=== PATIENT | male | born 1935 | race Two or more races ===

== ENCOUNTER 2021-02-15 16:04 | Inpatient (IN) | payer MEDICARE, OTHER ==
[~2021-02-15] VITALS: Ht 170.2 cm; Wt 53.2 kg
--- NOTE | 2021-02-15 16:08 | NUR ---
at bedside for assessment
[2021-02-15] MEDS ORDERED: BALS60OI4 TP (16:22)
[2021-02-15] MEDS ORDERED: ACET-2154 PO (16:22)
[2021-02-15] MEDS ORDERED: IPRA3AMP23 HHN (16:22)
--- NOTE | 2021-02-15 16:25 | NUR ---
Received telephone call from Dr.Hooman Velazquez who stated he has already scheduled dialysis for the pt and to call [facility] for admission, notified.
[2021-02-15] MEDS ORDERED: VIT1TABL46 PO (16:31)
[2021-02-15] MEDS ORDERED: QUET25TA PO (16:31)
[2021-02-15] MEDS ORDERED: PANT40VI IV (16:31)
[2021-02-15] MEDS ORDERED: SIME80TA16 PO (16:31)
[2021-02-15] MEDS ORDERED: MIDO10TA PO (16:31)
[2021-02-15] MEDS ORDERED: METO25TA6 PO (16:31)
[2021-02-15] MEDS ORDERED: POLY17PO4 PO (16:31)
[2021-02-15] MEDS ORDERED: MODA100T29 PO (16:31)
[2021-02-15] MEDS ORDERED: SENN-261 PO (16:31)
[2021-02-15] MEDS ORDERED: ONDA4TAB11 SL (16:31)
[2021-02-15] MEDS ORDERED: HYDR-4209 PO (16:31)
[2021-02-15] MEDS ORDERED: EPOE1000 SQ (16:31)
[2021-02-15] MEDS ORDERED: SILV50CR32 TP (16:31)
[2021-02-15] MEDS ORDERED: COLL30OI TOP (16:31)
[2021-02-15 16:45] LABS: HEMATOCRIT 29.3 % (36.7-47.1); MEAN CORPUSCULAR HEMOGLOBIN 32.7 uug (23.8-33.4); MEAN CORPUSCULAR VOLUME 104.9 fL (73.0-96.2); PLATELET COUNT (AUTO) 104 K/uL (152-348)
[2021-02-15 16:54] LABS: CARBON DIOXIDE 30 mmol/L (21-32); CHLORIDE 102 mmol/L (98-107); CREATININE 4.9 mg/dL (0.6-1.3); GLUCOSE 96 mg/dL (74-106); POTASSIUM 4.5 mmol/L (3.5-5.1); UREA NITROGEN, BLOOD 39 mg/dL (7-18)
[2021-02-15 16:55] LABS: ETHANOL < 3 MG/DL (0-0)
[2021-02-15 17:01] LABS: *BLOOD, URINE 2+ (NEGATIVE); *CLARITY,URINE SLIGHTLY CLOUDY (CLEAR); *COLOR,URINE AMBER (YELLOW); *KETONES,URINE 1+ (NEGATIVE); LEUKOCYTE ESTERASE ,URINE NEGATIVE (NEGATIVE); NITRITE, URINE NEGATIVE (NEGATIVE); UGLUCOSE TRACE (NEGATIVE)
[2021-02-15 17:02] LABS: *BILIRUBIN,URIN 3+ (NEGATIVE)
[2021-02-15 17:07] LABS: RBC,URINE 20-50 /HPF (0-3)
[2021-02-15 17:08] LABS: THYROID STIMULATING HORMONE 12.935 mIU/mL (0.358-3.740)
[2021-02-15 17:08] LABS: BACTERIA,URINE FEW /HPF (NONE SEEN); SQUAMOUS EPITHELIAL CELL,UR FEW /HPF (NONE SEEN); URINE AMORPHOUS URATE MODERATE /HPF
[2021-02-15 17:11] LABS: ACETAMINOPHEN < 2.0 ug/mL (10-30); ALANINE AMINOTRANSFERASE 23 U/L (16-63); ALKALINE PHOSPHATASE 314 U/L (50-136); ASPARTATE AMINOTRANSFERASE 58 U/L (15-37); BILIRUBIN,DIRECT 6.4 mg/dL (0.0-0.2); BILIRUBIN,TOTAL 7.9 mg/dL (0.2-1.0); TOTAL PROTEIN, SERUM 6.6 g/dL (6.4-8.2)
[2021-02-15 17:12] LABS: *AMPHETAMINE, URINE NEGATIVE (NEGATIVE); *CANNABINOID, URINE NEGATIVE (NEGATIVE); *COCCAINE, URINE NEGATIVE (NEGATIVE); *OPIATE, URINE NEGATIVE (NEGATIVE); *PHENCYCLIDINE SCREEN,URINE NEGATIVE (NEGATIVE)
[2021-02-15 17:20] LABS: LYMPHOCYTES % (MANUAL) 22 % (20-40); NEUTROPHILS % (MANUAL) 56 % (42-75)
[2021-02-15 17:21] LABS: EOSINOPHILS % (MANUAL) 7 % (0-8); MONOCYTES % (MANUAL) 15 % (2-10)
[2021-02-15] MEDS ORDERED: MAGNESIUM HYDROXIDE 30 ML LIQUID UDC PO PRN (19:00)
[2021-02-15] MEDS ORDERED: SIMETHICONE 80 MG TAB.CHEW PO SCH (19:15)
--- NOTE | 2021-02-15 20:00 | NUR ---
Pt trans to tele room 302, NAD noted.
[2021-02-15 20:23] VITALS: BP 107/59
[2021-02-16 00:06] VITALS: BP 97/55
[2021-02-16] MEDS: HYDROCODONE/APAP 5-325MG TABLET PO PRN ×3 (00:56→14:26)
[2021-02-16 04:00] VITALS: BP 102/63
--- NOTE | 2021-02-16 05:51 | NUR ---
Pt admitted to Tele from ER at 2000H. All belongings accounted for. A-Fib on monitor with PVCs. Denies pain or SOB. On 4L NC. 2+ pitting edema in all extremities. Right upper arm PICC line dressing changed. Pt confused but able to follow directions. Bed is locked and in lowest position. Call light within reach. Repositioned for comfort. No other issues or concerns at this time, will endorse to day shift.
[2021-02-16] MEDS ORDERED: SIMETHICONE 80 MG TAB.CHEW PO PRN (05:55)
[2021-02-16 06:41] LABS: HEMATOCRIT 28.7 % (36.7-47.1); MEAN CORPUSCULAR HEMOGLOBIN 32.5 uug (23.8-33.4); MEAN CORPUSCULAR VOLUME 105.1 fL (73.0-96.2); PLATELET COUNT (AUTO) 101 K/uL (152-348)
[2021-02-16 07:00] LABS: ALANINE AMINOTRANSFERASE 22 U/L (16-63); ALKALINE PHOSPHATASE 289 U/L (50-136); ASPARTATE AMINOTRANSFERASE 59 U/L (15-37); BILIRUBIN,TOTAL 7.3 mg/dL (0.2-1.0); CARBON DIOXIDE 27 mmol/L (21-32); CHLORIDE 103 mmol/L (98-107); CHOLESTEROL < 50 mg/dL (<200); GLUCOSE 94 mg/dL (74-106); MAGNESIUM 2.6 mg/dL (1.8-2.4); PHOSPHOROUS 6.1 mg/dL (2.5-4.9); POTASSIUM 4.5 mmol/L (3.5-5.1); TOTAL PROTEIN, SERUM 6.3 g/dL (6.4-8.2); TRIGLYCERIDES 93 MG/DL (30-150); UREA NITROGEN, BLOOD 40 mg/dL (7-18)
[2021-02-16 07:13] LABS: HDL CHOLESTEROL < 10 mg/dL (40-60)
[2021-02-16] MEDS ORDERED: MODAFINIL 100 MG TABLET PO SCH (09:00)
[2021-02-16] MEDS ORDERED: QUETIAPINE FUMARATE 25 MG TABLET PO SCH (09:00)
[2021-02-16] MEDS ORDERED: METOPROLOL TARTRATE 25 MG TABLET PO SCH (09:00)
[2021-02-16] MEDS ORDERED: METOPROLOL TARTRATE 25 MG TABLET PO ONE (09:00)
[2021-02-16] MEDS: SENNOSIDES 1 TABLET PO SCH (09:52)
[2021-02-16 11:44] VITALS: BP 124/55
[2021-02-16] MEDS: METOPROLOL TARTRATE 25 MG TABLET PO SCH ×2 (14:26→17:23)
--- NOTE | 2021-02-16 15:00 | NUR ---
MED. PO X2 FOR C/O SEVERE PAIN LOW BACK & HIPS WITH GOOD EFFECT AFTER 1 HOUR.
[2021-02-16 15:16] VITALS: BP 108/69
[2021-02-16] MEDS: QUETIAPINE FUMARATE 25 MG TABLET PO SCH (17:23)
--- NOTE | 2021-02-16 18:00 | NUR ---
AT BEDSIDE. NO FURTHER C/O DISCOMFORT. STATES FEELING BETTER.
[2021-02-16 20:00] VITALS: BP 124/52
[2021-02-17] VITALS: BP 98/53
[2021-02-17 04:00] VITALS: BP 100/61
--- NOTE | 2021-02-17 05:29 | NUR ---
Pt slept intermittently throughout the night. Denies pain. Titrated to 1L NC, tolerating well. Wound care done on full thickness wound on right buttocks, tolerated well. No distress noted. Safety and comfort provided, no other issues or concerns at this time. Will endorse to day shift.
[2021-02-17] MEDS: LEVOTHYROXINE SODIUM 50 MCG TABLET PO SCH (06:00)
--- NOTE | 2021-02-17 07:30 | NUR ---
Patient in bed hob elevated, awake and responsive. Currently on dialysis. Picc line intact and patent. Safety measures maintained. Kept comfortable. Continue to monitor.
--- NOTE | 2021-02-17 08:47 | NUR ---
Per HD RN no output due to low BP. BP rechecked and noted 128/57
[2021-02-17 09:10] VITALS: BP 118/65
[2021-02-17] MEDS: MODAFINIL 100 MG TABLET PO SCH (09:27)
[2021-02-17] MEDS: QUETIAPINE FUMARATE 25 MG TABLET PO SCH ×2 (09:27→17:02)
[2021-02-17] MEDS: METOPROLOL TARTRATE 25 MG TABLET PO SCH ×3 (09:29→17:00)
[2021-02-17] MEDS: SENNOSIDES 1 TABLET PO SCH (09:39)
[2021-02-17 11:31] VITALS: BP 115/61
--- NOTE | 2021-02-17 11:39 | NUR ---
WOUND CARE CONSULT: PT PRESENTS WITH RT BUTTOCK PURULENT UNSTAGEABLE ULCER, PRESENT ON ADMISSION. RECOMMENDATIONS MADE FOR SKIN PROTECTION AND WOUND CARE. DISCUSSED WITH NURSING STAFF. SURGICAL CONSULT CALLED TO DR NOAH LICEA MD IN AGREEMENT WITH PLAN OF CARE. Addendum: 02/17/21 at 1140 by ANDRZEJ DESAI RN Amended: Links added. Addendum: 02/17/21 at 1143 by ANDRZEJ DESAI RN FIRST STEP LOW AIRLOSS MATTRESS IS ON ORDER.
[2021-02-17] MEDS: MIDODRINE HCL 5 MG TABLET PO SCH ×2 (12:15→17:02)
[2021-02-17] MEDS: SODIUM HYPOCHLORITE 0.125% (QUARTER STRENGTH) 473 ML BOTTLE TP SCH (13:07)
[2021-02-17 16:00] VITALS: BP 107/61
--- NOTE | 2021-02-17 17:15 | NUR ---
Dr. Alvarez made aware of patient's bp and hr with order to hold metoprolol, give midodrine, noted and carried out.
--- NOTE | 2021-02-17 18:48 | NUR ---
Patient resting but easily arousable. Alert and responsive. On 1 Lpm via nc tolerated spo2 97%. In no acute distress. KAYODE picc line intact and patent. Denies pain. Angel catheter intact and patent, draining dark yellow urine. No hematuria noted. Due meds tolerated. No nausea or vomiting. Safety maintained. Needs attended. at bedside.
[2021-02-17 20:00] VITALS: BP 124/56
[2021-02-18] VITALS: BP 118/65
[2021-02-18 04:00] VITALS: BP 123/66
[2021-02-18] MEDS: LEVOTHYROXINE SODIUM 50 MCG TABLET PO SCH (07:25)
--- NOTE | 2021-02-18 07:26 | NUR ---
Received awake and responsive to name calling out family names. On 1 Lpm via nc tolerated no acute distress. Hob elevated extremities elevated due to edema. HD site with dry dressing intact. KAYODE picc line intact. Angel catheter patent draining dark yellow urine. No hematuria. Bed is low and locked. Safety maintained. Kept comfortable. COntinue to monitor.
[2021-02-18 07:30] VITALS: BP 121/60
[2021-02-18] MEDS: METOPROLOL TARTRATE 25 MG TABLET PO SCH ×3 (08:17→17:03)
[2021-02-18] MEDS: SENNOSIDES 1 TABLET PO SCH (08:17)
[2021-02-18] MEDS: MODAFINIL 100 MG TABLET PO SCH (08:18)
[2021-02-18] MEDS: MIDODRINE HCL 5 MG TABLET PO SCH ×3 (08:18→17:00)
[2021-02-18] MEDS: QUETIAPINE FUMARATE 25 MG TABLET PO SCH ×2 (08:18→17:03)
[2021-02-18] MEDS: SODIUM HYPOCHLORITE 0.125% (QUARTER STRENGTH) 473 ML BOTTLE TP SCH (10:08)
[2021-02-18 12:00] VITALS: BP 94/67
--- NOTE | 2021-02-18 12:30 | NUR ---
Dr. Morales made aware bp 94/67 p113.
[2021-02-18 15:06] LABS: *PEU PROTEIN, TOTAL, UR 156.6 mg/dL (Not Estab.)
[2021-02-18 15:42] LABS: HEPATITIS B SURFACE AB Non Reactive; HEPATITIS B SURFACE AG Negative
[2021-02-18 16:00] VITALS: BP 123/72
[2021-02-18] MEDS ORDERED: VANCOMYCIN IV 1,000 MG in IV DEXTROSE 5% 250 ML IV ONE (18:30)
--- NOTE | 2021-02-18 19:22 | NUR ---
Alert and oriented to name. In no acute distress. On 1 Lpm via nc tolerated. Denies pain. On air loss mattress for wound management. Iv on malik picc line intact. No adverse reaction from atb. Angel catheter intact and draining yellow urine. No hematuria noted. Safety maintained. Endorsed for continuity of care.
[2021-02-18 20:00] VITALS: BP 105/63
[2021-02-19] VITALS: BP 113/51
[2021-02-19 04:00] VITALS: BP 120/60
--- NOTE | 2021-02-19 05:30 | NUR ---
Pt slept intermittently throughout the night. No distress noted. Denies pain at this time. KAYODE PICC line patent and intact. Wound cleansed with Dakins and new dressing applied, pictures taken and placed in chart. Scheduled for dialysis today. Safety and comfort provided. No other issues or concerns at this time, will endorse to day shift.
[2021-02-19] MEDS: LEVOTHYROXINE SODIUM 50 MCG TABLET PO SCH (06:07)
[2021-02-19 06:46] LABS: HEMATOCRIT 29.8 % (36.7-47.1); MEAN CORPUSCULAR HEMOGLOBIN 32.7 uug (23.8-33.4); MEAN CORPUSCULAR VOLUME 105.5 fL (73.0-96.2); PLATELET COUNT (AUTO) 91 K/uL (152-348)
[2021-02-19 07:05] LABS: IRON, SERUM 43 ug/dL (50-175)
[2021-02-19 07:06] LABS: ALANINE AMINOTRANSFERASE 27 U/L (16-63); ALKALINE PHOSPHATASE 326 U/L (50-136); ASPARTATE AMINOTRANSFERASE 60 U/L (15-37); BILIRUBIN,TOTAL 6.8 mg/dL (0.2-1.0); CARBON DIOXIDE 31 mmol/L (21-32); CHLORIDE 103 mmol/L (98-107); CREATININE 3.7 mg/dL (0.6-1.3); GLUCOSE 100 mg/dL (74-106); MAGNESIUM 2.3 mg/dL (1.8-2.4); PHOSPHOROUS 4.6 mg/dL (2.5-4.9); POTASSIUM 4.5 mmol/L (3.5-5.1); TOTAL PROTEIN, SERUM 6.9 g/dL (6.4-8.2); UREA NITROGEN, BLOOD 28 mg/dL (7-18); VANCOMYCIN,RANDOM 16.1 ug/mL (18.0-26.0)
[2021-02-19 07:30] VITALS: BP 122/59
--- NOTE | 2021-02-19 07:47 | NUR ---
RECEIVED AWAKE, TALKING TO HIMSELF. REORIENTED BUT ONLY ORIENTED TO NAME. ON 1 LPM VIA NC. TOLERATED. IN NO ACUTE DISTRESS. NO FACIAL GRIMACING NOTED. PICC LINE INTACT. VAUGHN CATHETER INTACT DRAINING DARK YELLOW URINE. HOB ELEVATED. EXTREMITIES ELEVATED. KEPT COMFORTABLE. CALL LIGHT IN REACH. CONTINUE TO MONITOR.
[2021-02-19] MEDS: MODAFINIL 100 MG TABLET PO SCH (08:31)
[2021-02-19] MEDS: METOPROLOL TARTRATE 25 MG TABLET PO SCH ×4 (08:31→17:00)
[2021-02-19] MEDS: NEPRO (VANILLA) 237 ML CAN PO SCH (08:32)
[2021-02-19] MEDS: MIDODRINE HCL 5 MG TABLET PO SCH ×4 (08:32→17:00)
[2021-02-19] MEDS: QUETIAPINE FUMARATE 25 MG TABLET PO SCH ×2 (08:32→17:00)
[2021-02-19] MEDS: SENNOSIDES 1 TABLET PO SCH (08:33)
[2021-02-19] MEDS: SODIUM HYPOCHLORITE 0.125% (QUARTER STRENGTH) 473 ML BOTTLE TP SCH (08:33)
[2021-02-19 08:51] LABS: THYROID STIMULATING HORMONE 14.198 mIU/mL (0.358-3.740)
[2021-02-19] MEDS ORDERED: LIDOCAINE 1%-EPI 1:100,000 20 ML VIAL IJ ONE (10:15)
[2021-02-19] MEDS ORDERED: SILVER NITRATE APPLICATOR STICK EACH TP ONE (10:15)
[2021-02-19 11:36] VITALS: BP 114/71
[2021-02-19 12:40] LABS: EOSINOPHILS % (MANUAL) 5 % (0-8); LYMPHOCYTES % (MANUAL) 20 % (20-40); MONOCYTES % (MANUAL) 20 % (2-10); NEUTROPHILS % (MANUAL) 55 % (42-75)
--- NOTE | 2021-02-19 13:44 | NUR ---
Patient having dialysis today. Per Dr. Morales hold bp meds. Family at bedside aware.
[2021-02-19 16:00] VITALS: BP 117/84
--- NOTE | 2021-02-19 16:05 | NUR ---
Left voicemail for Ashvin RN asking what time he's coming for patient's dialysis. Waiting for call back.
--- NOTE | 2021-02-19 18:16 | NUR ---
Left vm for Blanca again re time he's coming for dialysis. Waiting for call back.
--- NOTE | 2021-02-19 18:44 | NUR ---
Wound dressing changed as ordered. spear fisher here.
--- NOTE | 2021-02-19 18:48 | NUR ---
Patient in bed resting comfortably. On 1 Lpm via nc tolerated. No sob noted. Denies pain. at bedside. No complaints at this time. Due meds given and tolerated. Angel catheter draining dark yellow urine. No hematuria. KAYODE picc line intact and patent. bottom filler here. Per Gal at pharmacy, give Vancomycin after dialysis. Patient is kept comfortable. Safety maintained. Will endorse accordingly.
[2021-02-19 20:00] VITALS: BP 128/67
[2021-02-19] MEDS: VANCOMYCIN IV 500 MG in IV DEXTROSE 5% 100 ML IV PRN (20:42)
[2021-02-20] VITALS: BP 123/64
[2021-02-20] MEDS: ACETAMINOPHEN 325 MG TABLET PO PRN (02:41)
[2021-02-20 04:00] VITALS: BP 120/62
--- NOTE | 2021-02-20 05:28 | NUR ---
Pt slept intermittently throughout the night. No distress or SOB noted. Patient denies pain at this time. On 1L NC, tolerating well. Dialyzed yesterday, removed 1.6L. KAYODE PICC line dressing changed. Wound care done on buttocks, pt tolerated well. ST on monitor, up to 115, pt asymptomatic. Safety and comfort provided to patient throughout shift. No other issues or concerns at this time, will endorse to day shift.
[2021-02-20] MEDS: LEVOTHYROXINE SODIUM 75 MCG TABLET PO SCH (06:20)
--- NOTE | 2021-02-20 07:02 | NUR ---
During wound dressing change, patient had one episode of V-Tach for about 2 seconds. Pt asymptomatic. Denies chest pain. Dr. Morales notified with no new orders at this time.
[2021-02-20 07:05] LABS: CARBON DIOXIDE 31 mmol/L (21-32); CHLORIDE 104 mmol/L (98-107); GLUCOSE 83 mg/dL (74-106); POTASSIUM 4.1 mmol/L (3.5-5.1); UREA NITROGEN, BLOOD 25 mg/dL (7-18); VANCOMYCIN,RANDOM 20.6 ug/mL (18.0-26.0)
--- NOTE | 2021-02-20 07:30 | NUR ---
PATIENT RECEIVED ON AIR MATTRESS WITH EYES OPEN. 1L O2 VIA NC WITH NO SOB OR DIFFICULTIES BREATHING NOTED AT THIS TIME. PATIENT DENIES ANY PAIN OR DISCOMFORTS AT THIS TIME. PATIENT IS ONLY ORIENTED TO SELF AND HAS MOMENTS OF CONFUSION, BUT REDIRECTABLE AT THIS TIME. PT SHOWING A FIB WITH PVCS ON TELE WITH HR OF 111 AT THIS TIME. [address] IN PLACE DRAINING VIA GRAVITY WITH JOHNIE URINE. PERSONAL BELONGINGS AND CALL LIGHT WITHIN EASY REACH. WILL CONTINUE TO MONITOR.
[2021-02-20] MEDS: SODIUM HYPOCHLORITE 0.125% (QUARTER STRENGTH) 473 ML BOTTLE TP SCH (08:56)
[2021-02-20] MEDS: SENNOSIDES 1 TABLET PO SCH (08:58)
[2021-02-20] MEDS: QUETIAPINE FUMARATE 25 MG TABLET PO SCH ×2 (08:58→17:51)
[2021-02-20] MEDS: MODAFINIL 100 MG TABLET PO SCH (08:59)
[2021-02-20] MEDS: NEPRO (VANILLA) 237 ML CAN PO SCH (09:00)
[2021-02-20] MEDS: MIDODRINE HCL 5 MG TABLET PO SCH ×3 (09:06→17:51)
[2021-02-20] MEDS: METOPROLOL TARTRATE 25 MG TABLET PO SCH ×3 (09:06→17:00)
--- NOTE | 2021-02-20 11:15 | NUR ---
PATIENT UNABLE TO SIGN CONSENT FOR WOUND DEBRIDEMENT BECAUSE CONFUSED AND UNABLE TO FOLLOW DIRECTIONS. ATTEMPTED TO CONTACT DAUGHTER JOHN, BUT NUMBER ON FILE IS NOT A WORKING NUMBER. ATTEMPTED TO CALL [employer], BUT NO ANSWER. WILL TRY AGAIN IN 30 MINUTES.
[2021-02-20 12:00] VITALS: BP 103/64
--- NOTE | 2021-02-20 12:00 | NUR ---
PATIENT AT BEDSIDE. CONSENT FOR WOUND DEBRIDEMENT RECEIVED. PATIENT IS IN BED WITH EYES CLOSED, EASILY AROUSABLE. CALL LIGHT AND PERSONAL BELONGINGS WITHIN EASY REACH. WILL CONTINUE TO MONITOR.
[2021-02-20] MEDS ORDERED: ALBUMIN HUMAN 25% 100 ML IV ONE (15:45)
[2021-02-20 16:17] VITALS: BP 114/59
--- NOTE | 2021-02-20 17:50 | NUR ---
PATIENT FINISHED WITH DIALYSIS AND CURRENT B/P IS 105/56. PATIENT WAS GIVEN ALBUMIN DURING DIALYSIS FOR B/P, SO 1700 DOSE OF METOPROLOL WAS HELD.
[2021-02-20] MEDS: VANCOMYCIN IV 500 MG in IV DEXTROSE 5% 100 ML IV PRN (18:24)
--- NOTE | 2021-02-20 18:50 | NUR ---
PATIENT PICC LINE DRESSING WAS CHANGED BECAUSE BIOPATCH WAS SOILED.
[2021-02-20] MEDS: LACTULOSE 20 G/30 ML LIQUID UDC PO SCH ×2 (19:00→21:17)
--- NOTE | 2021-02-20 19:00 | NUR ---
Received patient in bed, A/O x1. Patient currently stable, A-fib on the monitor. Patient had HD today with 1L output. Right chest Tiago catheter in place, KAYODE picc line in place, both dressings clean. Patient on first step mattress, no Angel. Concern for full thickness on right buttock. Wound debridement scheduled for tomorrow.
[2021-02-20 20:00] VITALS: BP 110/54
[2021-02-20] MEDS: RIFAXIMIN 550 MG TABLET PO SCH (21:17)
[2021-02-21] VITALS: BP 114/55
[2021-02-21] MEDS: HYDROCODONE/APAP 5-325MG TABLET PO PRN ×2 (01:32→14:25)
[2021-02-21 04:00] VITALS: BP 119/62
--- NOTE | 2021-02-21 04:37 | NUR ---
Wound debridement kit prepared and is at the bedside.
[2021-02-21] MEDS: LEVOTHYROXINE SODIUM 75 MCG TABLET PO SCH (06:27)
--- NOTE | 2021-02-21 07:04 | NUR ---
Patient remains A/O x1. Patient currently stable, remains A-fib on the monitor. Patient given bed bath, wound on right buttock cleaned and re-dressed. All supplies for wound debridement in the room.
[2021-02-21 07:27] LABS: CARBON DIOXIDE 32 mmol/L (21-32); CHLORIDE 104 mmol/L (98-107); CREATININE 3.1 mg/dL (0.6-1.3); GLUCOSE 80 mg/dL (74-106); UREA NITROGEN, BLOOD 27 mg/dL (7-18); VANCOMYCIN,RANDOM 18.3 ug/mL (18.0-26.0)
--- NOTE | 2021-02-21 07:30 | NUR ---
Patient received on air mattress with eyes closed, easily arousable. 1L O2 via NC with no SOB or difficulties breathing at this time. Patient is alert and oriented x1, a-fib on monitor. Right chest gopi catheter is in place, KAYODE picc line in place, both dressings clean and dry. Plan for wound debridement today at bedside. No distress noted at this time. Personal belongings and call light within easy reach. Will continue to monitor.
[2021-02-21] MEDS: QUETIAPINE FUMARATE 25 MG TABLET PO SCH ×2 (09:50→17:43)
[2021-02-21] MEDS: METOPROLOL TARTRATE 25 MG TABLET PO SCH ×3 (09:50→17:00)
[2021-02-21] MEDS: NEPRO (VANILLA) 237 ML CAN PO SCH ×3 (09:50→17:44)
[2021-02-21] MEDS: MODAFINIL 100 MG TABLET PO SCH (09:50)
[2021-02-21] MEDS: MIDODRINE HCL 5 MG TABLET PO SCH ×3 (09:50→17:43)
[2021-02-21] MEDS: SENNOSIDES 1 TABLET PO SCH (09:50)
[2021-02-21] MEDS: RIFAXIMIN 550 MG TABLET PO SCH ×2 (09:51→21:38)
[2021-02-21] MEDS: LACTULOSE 20 G/30 ML LIQUID UDC PO SCH ×2 (09:51→21:38)
[2021-02-21] MEDS: SODIUM HYPOCHLORITE 0.125% (QUARTER STRENGTH) 473 ML BOTTLE TP SCH (09:52)
[2021-02-21 11:49] VITALS: BP 131/71
[2021-02-21] MEDS ORDERED: SILVER NITRATE APPLICATOR STICK EACH TP ONE (13:42)
[2021-02-21] MEDS ORDERED: LIDOCAINE 1%-EPI 1:100,000 20 ML VIAL IJ ONE (13:43)
[2021-02-21] MEDS: CEFTRIAXONE 1 G in IV DEXTROSE 5% 50 ML IV SCH (14:26)
[2021-02-21 15:59] VITALS: BP 101/52
[2021-02-21 20:00] VITALS: BP 109/49
[2021-02-22 04:00] VITALS: BP 95/59
--- NOTE | 2021-02-22 04:49 | NUR ---
Patient in bed alert x1 slovak speaking ,responsive to verbal and tactile stimuli.No s/s of distress noted. No facial grimaces discomfort.On O2 at 1LPM via NC ,saturating well.Right upper chest with gopi catheter and picc line on right upper arm patent and intact .Wound care done on right buttock.Tolerated well.Repositioned patient .Call light with in reach.
[2021-02-22] MEDS: LEVOTHYROXINE SODIUM 75 MCG TABLET PO SCH (06:23)
--- NOTE | 2021-02-22 07:15 | NUR ---
Patient received on air mattress with eyes closed, easily arousable. Dialysis nurse at bedside and patient currently being hemodialyzed. 1L O2 via NC with no SOB or difficulties breathing at this time. KAYODE picc line in place with clean and dry dressing. No distress noted at this time. Personal belongings and call light within easy reach. Will continue to monitor.
[2021-02-22] MEDS ORDERED: ALBUMIN HUMAN 25% 100 ML IV ONE (07:45)
[2021-02-22] MEDS: METOPROLOL TARTRATE 25 MG TABLET PO SCH ×3 (09:00→21:13)
[2021-02-22] MEDS: LACTULOSE 20 G/30 ML LIQUID UDC PO SCH ×2 (10:17→20:56)
[2021-02-22] MEDS: RIFAXIMIN 550 MG TABLET PO SCH ×2 (10:17→20:56)
[2021-02-22] MEDS: QUETIAPINE FUMARATE 25 MG TABLET PO SCH ×2 (10:18→17:35)
[2021-02-22] MEDS: MIDODRINE HCL 5 MG TABLET PO SCH ×3 (10:18→17:39)
[2021-02-22] MEDS: MODAFINIL 100 MG TABLET PO SCH (10:18)
[2021-02-22] MEDS: SENNOSIDES 1 TABLET PO SCH (10:18)
--- NOTE | 2021-02-22 10:19 | NUR ---
PATIENT JUST FINISHED HD WITH 1L OUTPUT, B/P OF 103/51. HELD METOPROLOL. WILL CONTINUE TO MONITOR.
[2021-02-22] MEDS: SODIUM HYPOCHLORITE 0.125% (QUARTER STRENGTH) 473 ML BOTTLE TP SCH (10:20)
[2021-02-22] MEDS: NEPRO (VANILLA) 237 ML CAN PO SCH ×2 (10:20→17:39)
[2021-02-22 11:00] VITALS: BP 121/64
[2021-02-22] MEDS: CEFTRIAXONE 1 G in IV DEXTROSE 5% 50 ML IV SCH (13:08)
[2021-02-22 16:00] VITALS: BP 109/61
[2021-02-22 20:00] VITALS: BP 100/57
--- NOTE | 2021-02-22 20:10 | NUR ---
Patient in bed awake georgian speaking. HOB elevated.No s/s of distress noted.Compliant with medication and care.Picc line dressing intact clean and dry.Madi lower ext.edema elevated with pillow.Family member at bedside. seen and examined patient no new order at this time.
[2021-02-23] MEDS: METOPROLOL TARTRATE 25 MG TABLET PO SCH ×3 (05:13→22:00)
[2021-02-23] MEDS: LEVOTHYROXINE SODIUM 75 MCG TABLET PO SCH (06:04)
[2021-02-23 07:04] LABS: HEMATOCRIT 28.3 % (36.7-47.1); MEAN CORPUSCULAR HEMOGLOBIN 32.6 uug (23.8-33.4); MEAN CORPUSCULAR VOLUME 103.3 fL (73.0-96.2); PLATELET COUNT (AUTO) 83 K/uL (152-348)
[2021-02-23 07:19] LABS: ALANINE AMINOTRANSFERASE 27 U/L (16-63); ALKALINE PHOSPHATASE 314 U/L (50-136); ASPARTATE AMINOTRANSFERASE 60 U/L (15-37); CARBON DIOXIDE 30 mmol/L (21-32); CHLORIDE 106 mmol/L (98-107); CREATININE 2.9 mg/dL (0.6-1.3); GLUCOSE 119 mg/dL (74-106); MAGNESIUM 2.2 mg/dL (1.8-2.4); PHOSPHOROUS 3.5 mg/dL (2.5-4.9); POTASSIUM 4.2 mmol/L (3.5-5.1)
[2021-02-23 07:30] VITALS: BP 97/50
[2021-02-23 07:35] LABS: UREA NITROGEN, BLOOD 20 mg/dL (7-18)
[2021-02-23] MEDS: QUETIAPINE FUMARATE 25 MG TABLET PO SCH ×2 (08:09→17:29)
[2021-02-23] MEDS: RIFAXIMIN 550 MG TABLET PO SCH ×2 (08:09→21:19)
[2021-02-23] MEDS: MODAFINIL 100 MG TABLET PO SCH (08:09)
[2021-02-23] MEDS: SENNOSIDES 1 TABLET PO SCH (08:09)
[2021-02-23] MEDS: LACTULOSE 20 G/30 ML LIQUID UDC PO SCH ×2 (08:09→21:19)
[2021-02-23] MEDS: NEPRO (VANILLA) 237 ML CAN PO SCH ×2 (08:10→17:29)
[2021-02-23] MEDS: SODIUM HYPOCHLORITE 0.125% (QUARTER STRENGTH) 473 ML BOTTLE TP SCH (08:11)
[2021-02-23] MEDS: MIDODRINE HCL 5 MG TABLET PO SCH ×3 (08:15→17:28)
[2021-02-23 11:09] LABS: EOSINOPHILS % (MANUAL) 2 % (0-8); LYMPHOCYTES % (MANUAL) 13 % (20-40); METAMYELOCYTES % 1 % (0-1); MONOCYTES % (MANUAL) 19 % (2-10); MYELOCYTES % 1 % (0-0); NEUTROPHILS % (MANUAL) 61 % (42-75)
[2021-02-23 11:30] VITALS: BP 111/61
[2021-02-23] MEDS: CEFTRIAXONE 1 G in IV DEXTROSE 5% 50 ML IV SCH (13:58)
[2021-02-23] MEDS ORDERED: MIDO5TAB4 PO (14:10)
[2021-02-23] MEDS ORDERED: HYDR-4209 PO (14:10)
[2021-02-23] MEDS ORDERED: ACID1TAB4 PO (14:10)
[2021-02-23] MEDS ORDERED: CEFT1VIA15 IV (14:10)
[2021-02-23] MEDS ORDERED: LEVO50TA8 PO (14:10)
[2021-02-23] MEDS ORDERED: ACET325T53 PO (14:10)
[2021-02-23] MEDS ORDERED: SODI473S8 TP (14:10)
[2021-02-23] MEDS ORDERED: METO25TA6 PO (14:10)
[2021-02-23] MEDS ORDERED: QUET25TA PO (14:10)
[2021-02-23] MEDS ORDERED: LACT10SO3 PO (14:12)
[2021-02-23] MEDS ORDERED: CHOL400T32 PO (14:25)
[2021-02-23 16:00] VITALS: BP 124/71
[2021-02-23 16:16] VITALS: BP 118/56
[2021-02-23] MEDS ORDERED: METOLAZONE 2.5 MG TABLET PO ONE ×2 (17:00→17:30)
--- NOTE | 2021-02-23 19:00 | NUR ---
Patient report received from previous shift. Patient awake, alert and oriented x 1 to person. No signs of pain at this time. Patient comfortable on 1L of oxygen. Patient is bedbound. 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 Patient is incontinent for bowel and urine. KAYODE midline, patent. Patient will be receiving dialysis. Safety precautions in place. Will continue to monitor.
[2021-02-23 20:19] VITALS: BP 96/45
--- NOTE | 2021-02-23 23:50 | NUR ---
Patient received dialysis. Out put of 1500ml.
[2021-02-24 05:10] VITALS: BP 112/44
[2021-02-24] MEDS: LEVOTHYROXINE SODIUM 75 MCG TABLET PO SCH (06:30)
[2021-02-24] MEDS: METOPROLOL TARTRATE 25 MG TABLET PO SCH ×3 (06:56→22:29)
--- NOTE | 2021-02-24 07:20 | NUR ---
Patient resting in bed. Awake alert and oriented x 1. Resting comfortably on 1L of oxygen. No signs of pain or distress at this time. No shortness of breath noted. Fall and safety precautions in place.
--- NOTE | 2021-02-24 07:30 | NUR ---
RECEIVED PATIENT ON FIRST STEP SHAUN AWAKE ALERT TO SELF WITH CONFUSSION AND DISORIENTATION ALL NEEDS ANTICIPATED AND SATISFIED WITH MAX ASSIST FOR ALL ADL REPOSITIONED FOR COMFORT WITH TX IN PROGRESS TO LEFT BUTTOCKS DECUB ORDERED.ON O2 AT ONE LITER WITH NO SHORTNESS OF BREATH AT THIS TIME PERMA CATH ON RIGHT UPPER CHEST INTACT WITH NO DRAINAGE AT THIS TIME.MADE COMFORTABLE WILL CONTINUE TO OBSERVE.
[2021-02-24] MEDS: LACTULOSE 20 G/30 ML LIQUID UDC PO SCH ×2 (09:01→20:54)
[2021-02-24] MEDS: SENNOSIDES 1 TABLET PO SCH (09:01)
[2021-02-24] MEDS: MODAFINIL 100 MG TABLET PO SCH (09:02)
[2021-02-24] MEDS: QUETIAPINE FUMARATE 25 MG TABLET PO SCH ×2 (09:02→17:13)
[2021-02-24] MEDS: MIDODRINE HCL 5 MG TABLET PO SCH ×3 (09:04→17:12)
[2021-02-24] MEDS: SODIUM HYPOCHLORITE 0.125% (QUARTER STRENGTH) 473 ML BOTTLE TP SCH (09:05)
[2021-02-24] MEDS: RIFAXIMIN 550 MG TABLET PO SCH ×2 (09:06→20:54)
[2021-02-24] MEDS: NEPRO (VANILLA) 237 ML CAN PO SCH ×2 (09:12→17:13)
--- NOTE | 2021-02-24 11:17 | NUR ---
DR KEVIN LAURENT HERE TO SEE PATIENT WITH NEW ORDERS PATIENT WILL HAVE DIALYSIS TODAY AND TOMORROW
[2021-02-24 12:00] VITALS: BP 107/45
[2021-02-24] MEDS ORDERED: EPOETIN ALFA 20,000 UNIT/ML ML SQ ONE (12:30)
--- NOTE | 2021-02-24 13:18 | NUR ---
SPOOL SORTER HERE AND COMPLETED DIALYSIS AND REMOVED 1.5 LITERS EPOGEN GIVEN ORDERED MIDODRINE GIVEN AND LOPRESSOR HELD DUE TO LOW B/P PATIENT TOLERATED WELL
[2021-02-24] MEDS: CEFTRIAXONE 1 G in IV DEXTROSE 5% 50 ML IV SCH (13:37)
--- NOTE | 2021-02-24 15:11 | NUR ---
FISH FARM MANAGER HERE FOR TEST ORDERED PATIENT IS UNCOOPERATIVE AT THIS TIME FAMILY AT BEDSIDE AND HE IS UNABLE TO DO THE TEST.
[2021-02-24 16:00] VITALS: BP 107/63
--- NOTE | 2021-02-24 17:32 | NUR ---
RESTING IN BED MIDODRINE GIVEN ORDERED SEE BLOOD PRESSURE FAMILY AT BEDSIDE REMAIN ON ATB ORDERED WITH NO ADVERSE OR ALLERGIC REACTIONS AT THIS TIME WILL CONTINUE TO OBSERVE.
--- NOTE | 2021-02-24 19:45 | NUR ---
Patient alert but forgetful, denies pain, kept clean and dry, on low air loss mattress for wound management. Patient r upper arm picc line intact, right upper chest perma cath for dialysis access dressing in place. turn and reposition, cont to monitor.
[2021-02-24 20:16] VITALS: BP 111/63
[2021-02-25] MEDS: HYDROCODONE/APAP 5-325MG TABLET PO PRN (01:35)
--- NOTE | 2021-02-25 01:35 | NUR ---
Patient moaning but denies pain, reposition, kept patient warm and dry. Patient given pain medication for comfort and pain. cont to monitor.
[2021-02-25 04:45] VITALS: BP 103/55
--- NOTE | 2021-02-25 04:47 | NUR ---
Patient right buttock dressing was soiled, dressing was changed as ordered. Patient alert but forgetful denies pain, has small bm in this shift, turn and reposition, kept bilateral lower extremities with pillow, with edema noted. Patient has episode of moaning but denies pain at this time, kept clean and dry, cont to monitor.
[2021-02-25] MEDS: LEVOTHYROXINE SODIUM 75 MCG TABLET PO SCH (06:01)
[2021-02-25] MEDS: METOPROLOL TARTRATE 25 MG TABLET PO SCH ×3 (06:02→22:00)
[2021-02-25 06:56] LABS: HEMATOCRIT 28.3 % (36.7-47.1); MEAN CORPUSCULAR HEMOGLOBIN 33.2 uug (23.8-33.4); MEAN CORPUSCULAR VOLUME 102.9 fL (73.0-96.2); PLATELET COUNT (AUTO) 74 K/uL (152-348)
[2021-02-25 07:17] LABS: ALANINE AMINOTRANSFERASE 27 U/L (16-63); ALKALINE PHOSPHATASE 478 U/L (50-136); ASPARTATE AMINOTRANSFERASE 72 U/L (15-37); BILIRUBIN,TOTAL 6.4 mg/dL (0.2-1.0); CARBON DIOXIDE 30 mmol/L (21-32); CHLORIDE 105 mmol/L (98-107); CREATININE 2.7 mg/dL (0.6-1.3); GLUCOSE 105 mg/dL (74-106); MAGNESIUM 2.1 mg/dL (1.8-2.4); PHOSPHOROUS 3.1 mg/dL (2.5-4.9); POTASSIUM 4.1 mmol/L (3.5-5.1); TOTAL PROTEIN, SERUM 6.5 g/dL (6.4-8.2); UREA NITROGEN, BLOOD 21 mg/dL (7-18)
[2021-02-25 07:21] LABS: NEUTROPHILS % (MANUAL) 0 % (42-75)
--- NOTE | 2021-02-25 08:00 | NUR ---
AWAKE ALERT BUT REMAINS CONFUSED X3 WITH O2 AT 1L NC SATURATING 95%. NO SS OF ACUTE PAIN. TOTAL CARE IN ALL AREAS OF ADLS.
[2021-02-25] MEDS: SENNOSIDES 1 TABLET PO SCH (08:21)
[2021-02-25] MEDS: MODAFINIL 100 MG TABLET PO SCH (08:21)
[2021-02-25] MEDS: LACTULOSE 20 G/30 ML LIQUID UDC PO SCH ×2 (08:21→22:10)
[2021-02-25] MEDS: QUETIAPINE FUMARATE 25 MG TABLET PO SCH ×2 (08:21→16:27)
[2021-02-25] MEDS: RIFAXIMIN 550 MG TABLET PO SCH ×2 (08:21→22:10)
[2021-02-25] MEDS: NEPRO (VANILLA) 237 ML CAN PO SCH ×2 (08:24→16:27)
[2021-02-25] MEDS: SODIUM HYPOCHLORITE 0.125% (QUARTER STRENGTH) 473 ML BOTTLE TP SCH (08:25)
[2021-02-25] MEDS: MIDODRINE HCL 5 MG TABLET PO SCH ×3 (08:27→16:26)
[2021-02-25 11:42] VITALS: BP 94/43
--- NOTE | 2021-02-25 12:00 | NUR ---
NO ACUTE CHANGE FROM AM ASSESSMENT. FEEDER. CONTINUE WITH IV ANTIBIOTICS
[2021-02-25] MEDS: CEFTRIAXONE 1 G in IV DEXTROSE 5% 50 ML IV SCH (13:18)
[2021-02-25] MEDS: ONDANSETRON 4 MG/2 ML VIAL IV PRN ×2 (14:35→15:17)
[2021-02-25 15:44] VITALS: BP 116/41
--- NOTE | 2021-02-25 17:31 | NUR ---
medicated x1 with zofran for vomiting large amount of stomach content with good results. no sob or signs of distress. afebrile
--- NOTE | 2021-02-25 19:00 | NUR ---
Patient awake no complain of pain at this time, kept clean and dry comfortable, cont to monitor.
--- NOTE | 2021-02-25 19:30 | NUR ---
Dialysis nurse/staff came and will dialyze patient as order, cont to monitor.
[2021-02-25 20:17] VITALS: BP 90/42
--- NOTE | 2021-02-25 21:30 | NUR ---
Patient had dialysis today but no fluids taken out per dialysis staff. cont to monitor.
[2021-02-25] MEDS: ACETAMINOPHEN 325 MG TABLET PO PRN (23:39)
--- NOTE | 2021-02-25 23:39 | NUR ---
Patient awake yelling and screaming, given tylenol 650mg po for pain and comfort. Patient was kept clean and dry, offered food and water but refused, cont to monitor.
[2021-02-26] MEDS: HYDROCODONE/APAP 5-325MG TABLET PO PRN (01:11)
--- NOTE | 2021-02-26 01:11 | NUR ---
Patient still yelling, stated he's pain on r buttock, given Narco 1 tab po for lots of pain. cont to monitor.
[2021-02-26] MEDS ORDERED: GUAIFENESIN/DEXTROMETHORPHAN 5 ML UDC PO PRN (02:00)
--- NOTE | 2021-02-26 02:00 | NUR ---
Notify [facility] that patient had non productive cough and episode of yelling and screaming for no apparent reason with order of jenny minaya and jonnathan.
[2021-02-26 04:30] VITALS: BP 99/55
--- NOTE | 2021-02-26 05:45 | NUR ---
Patient awake but forgetful, no s/s of chest pain, no s/s of shortness of breath, patient kept removing oxygen, oxygen sat 100% at 2 liters, continue to remind not to remove his oxygen. Patient non productive cough subsided at this time. Patient has no complain of pain, tx done on right buttock wound, still have edema on both lower extremities, patient behavior of yelling subsided at this time, v/s stable, B/P low held medication, cont to monitor
[2021-02-26] MEDS: METOPROLOL TARTRATE 25 MG TABLET PO SCH ×3 (06:00→21:26)
[2021-02-26] MEDS: LEVOTHYROXINE SODIUM 75 MCG TABLET PO SCH (06:05)
[2021-02-26 06:42] LABS: CARBON DIOXIDE 30 mmol/L (21-32); CHLORIDE 107 mmol/L (98-107); CREATININE 2.9 mg/dL (0.6-1.3); GLUCOSE 105 mg/dL (74-106); POTASSIUM 4.9 mmol/L (3.5-5.1); UREA NITROGEN, BLOOD 19 mg/dL (7-18)
[2021-02-26 07:17] LABS: HEMATOCRIT 27.9 % (36.7-47.1); MEAN CORPUSCULAR VOLUME 102.6 fL (73.0-96.2); PLATELET COUNT (AUTO) 64 K/uL (152-348)
[2021-02-26 08:03] VITALS: BP 103/57
[2021-02-26] MEDS: MIDODRINE HCL 5 MG TABLET PO SCH ×3 (08:35→20:04)
[2021-02-26] MEDS: MODAFINIL 100 MG TABLET PO SCH (08:35)
[2021-02-26] MEDS: SENNOSIDES 1 TABLET PO SCH (08:35)
[2021-02-26] MEDS: QUETIAPINE FUMARATE 25 MG TABLET PO SCH ×2 (08:36→20:03)
[2021-02-26] MEDS: SODIUM HYPOCHLORITE 0.125% (QUARTER STRENGTH) 473 ML BOTTLE TP SCH (08:37)
[2021-02-26] MEDS: RIFAXIMIN 550 MG TABLET PO SCH ×2 (08:37→20:04)
[2021-02-26] MEDS: NEPRO (VANILLA) 237 ML CAN PO SCH ×3 (08:38→20:07)
[2021-02-26] MEDS: Z GUARD REMEDY PASTE 57 GM TUBE TOP PRN (08:38)
[2021-02-26] MEDS: LACTULOSE 20 G/30 ML LIQUID UDC PO SCH ×2 (08:39→20:04)
--- NOTE | 2021-02-26 09:45 | NUR ---
Pt AAOx1, remains confused. Found on RA, spo2 >92%. Bedrest. No s/s of distress, appears comfortable at this time. Family at bedside. Report given to DEBORAH Wan for continuity of care.
--- NOTE | 2021-02-26 10:00 | NUR ---
Received report from DEBORAH So.
[2021-02-26] MEDS: ONDANSETRON 4 MG/2 ML VIAL IV PRN ×2 (11:02→21:53)
--- NOTE | 2021-02-26 11:15 | NUR ---
JOSELUIS Yuan made aware of patient's bp 88/51.
[2021-02-26] MEDS ORDERED: CEFD300C3 PO (11:21)
[2021-02-26 12:00] VITALS: BP 88/51
[2021-02-26 12:52] LABS: NEUTROPHILS % (MANUAL) 82 % (42-75)
[2021-02-26 12:53] LABS: LYMPHOCYTES % (MANUAL) 6 % (20-40); MONOCYTES % (MANUAL) 12 % (2-10)
[2021-02-26] MEDS: CEFTRIAXONE 1 G in IV DEXTROSE 5% 50 ML IV SCH (13:06)
[2021-02-26] MEDS ORDERED: DOSING PER PHARMACY-AMIKACIN IV XX PRN (15:45)
[2021-02-26 16:00] VITALS: BP 93/46
[2021-02-26] MEDS ORDERED: AMIKACIN 350 MG in IV DEXTROSE 5% 100 ML IV ONE (17:00)
--- NOTE | 2021-02-26 18:41 | NUR ---
Per Tammie at lab able to view JOSELUIS Keith' order to "Run sensitivities of the Pseudomonas in the wound culture". Also called [facility] lab x2 but no one picked up. Will endorse.
--- NOTE | 2021-02-26 18:43 | NUR ---
Patient still npo for CT pelvis with contrast.
[2021-02-26] MEDS ORDERED: SWABABLE VALVE TRANSFER SET EA MC ONE (18:57)
[2021-02-26] MEDS ORDERED: IV NORMAL SALINE 250 ML IV ONE (18:57)
[2021-02-26] MEDS ORDERED: IOHEXOL 300MG/ML 100 ML INFUS..BTL ONE (18:57)
--- NOTE | 2021-02-26 19:01 | NUR ---
Awake and reponsive, kept asking for "agua Addendum: 02/26/21 at 1922 by KORI KHAN RN Awake and responsive, kept asking for "agua". Patient reoriented. No acute distress. Needs attended. Picked up by radiology for ct scan.
[2021-02-26 20:42] VITALS: BP 102/48
[2021-02-26] MEDS ORDERED: LINEZOLID IV 600 MG in PREMIXED 1 EACH IV SCH (21:00)
[2021-02-26] MEDS: LORAZEPAM 2 MG/1 ML VIAL IV PRN (22:32)
[2021-02-27] VITALS (14 sets, daily range): BP systolic 78–103; BP diastolic 21–65
[2021-02-27] MEDS: METOPROLOL TARTRATE 25 MG TABLET PO SCH ×3 (06:00→21:51)
--- NOTE | 2021-02-27 06:07 | NUR ---
Pt slept intermittently throughout the night. Exhibited a lot of anxious behavior, Ativan was administered, pt tolerated well. Wound care provided to patient's buttocks per order. KAYODE PICC line dressing changed. Pt tolerated well. Safety and comfort provided. No other issues or concerns at this time, will endorse to oncoming shift.
[2021-02-27] MEDS: LEVOTHYROXINE SODIUM 75 MCG TABLET PO SCH (06:24)
[2021-02-27 06:25] LABS: HEMATOCRIT 29.5 % (36.7-47.1); MEAN CORPUSCULAR HEMOGLOBIN 32.6 uug (23.8-33.4); MEAN CORPUSCULAR VOLUME 103.5 fL (73.0-96.2); PLATELET COUNT (AUTO) 84 K/uL (152-348)
[2021-02-27 06:52] LABS: ALANINE AMINOTRANSFERASE 44 U/L (16-63); ALKALINE PHOSPHATASE 498 U/L (50-136); ASPARTATE AMINOTRANSFERASE 97 U/L (15-37); BILIRUBIN,TOTAL 11.4 mg/dL (0.2-1.0); CARBON DIOXIDE 30 mmol/L (21-32); CHLORIDE 102 mmol/L (98-107); CREATININE 3.1 mg/dL (0.6-1.3); GLUCOSE 88 mg/dL (74-106); MAGNESIUM 1.9 mg/dL (1.8-2.4); PHOSPHOROUS 2.9 mg/dL (2.5-4.9); POTASSIUM 4.3 mmol/L (3.5-5.1); TOTAL PROTEIN, SERUM 6.1 g/dL (6.4-8.2); UREA NITROGEN, BLOOD 26 mg/dL (7-18)
[2021-02-27] MEDS: LACTULOSE 20 G/30 ML LIQUID UDC PO SCH ×2 (09:41→21:00)
[2021-02-27] MEDS: MIDODRINE HCL 5 MG TABLET PO SCH ×3 (09:41→16:54)
[2021-02-27] MEDS: RIFAXIMIN 550 MG TABLET PO SCH ×2 (09:42→21:00)
[2021-02-27] MEDS: SENNOSIDES 1 TABLET PO SCH (09:42)
[2021-02-27] MEDS: QUETIAPINE FUMARATE 25 MG TABLET PO SCH ×2 (09:42→16:54)
[2021-02-27] MEDS: MODAFINIL 100 MG TABLET PO SCH (09:43)
[2021-02-27] MEDS: SODIUM HYPOCHLORITE 0.125% (QUARTER STRENGTH) 473 ML BOTTLE TP SCH (09:44)
[2021-02-27] MEDS: NEPRO (VANILLA) 237 ML CAN PO SCH ×3 (09:45→16:57)
[2021-02-27] MEDS ORDERED: LINEZOLID IV 600 MG in PREMIXED 1 EACH IV ONE (11:30)
[2021-02-27] MEDS ORDERED: ALBUMIN HUMAN 5% 250 ML IV ONE (18:30)
[2021-02-27] MEDS ORDERED: ALBUMIN HUMAN 25% 100 ML IV ONE (18:45)
--- NOTE | 2021-02-27 19:39 | NUR ---
Report received. Patient awake, easily agitated, not following commands, language barrier?, no appropriate verbal responses. Hypotensive. S/p dialysis today as per report 1600 ml taken out. Monitored closely. Status changed to CHRISTINA. Attached to tele monitor: Afib rate 100's.
--- NOTE | 2021-02-27 20:45 | NUR ---
Dr. Ovalles notified of patient's BP and condition. Awaiting call back. Addendum: 02/27/21 at 2336 by VASQUEZ BENAVIDEZ RN Amended: Links added.
--- NOTE | 2021-02-27 21:00 | NUR ---
PM care rendered. Patient incontinent of both small amounts of brown yellow stools and urine. Skin care provided. Patient gets combative, restless and uncooperative during care. Talking in Nauruan. Reoriented PRN. Not able to give po meds; patient is still hypotensive. Addendum: 02/27/21 at 2340 by VASQUEZ BENAVIDEZ RN Amended: Links added. Addendum: 02/27/21 at 2342 by VASQUEZ BENAVIDEZ RN Amended: Links added. Addendum: 02/27/21 at 2342 by VASQUEZ BENAVIDEZ RN Amended: Links added. Addendum: 02/27/21 at 2343 by VASQUEZ BENAVIDEZ RN Amended: Links added. Addendum: 02/27/21 at 2344 by VASQUEZ BENAVIDEZ RN Amended: Links added. Addendum: 02/27/21 at 2344 by VASQUEZ BENAVIDEZ RN Amended: Links added. Addendum: 02/27/21 at 2344 by VASQUEZ BENAVIDEZ RN Amended: Links added.
--- NOTE | 2021-02-27 22:05 | NUR ---
Dr. Ovalles notified again of patient's BP. Ordered NS 250 ml bolus. IV NS 250 ml x1 started to KAYODE PICC line as ordered. Addendum: 02/27/21 at 234 by VASQUEZ BENAVIDEZ RN Amended: Links added. Addendum: 02/27/21 at 2341 by VASQUEZ BENAVIDEZ RN Amended: Links added. Addendum: 02/27/21 at 2343 by VASQUEZ TAECHARATKIJ RN Amended: Links added. Addendum: 02/27/21 at 2344 by VASQUEZ BENAVIDEZ RN Amended: Links added. Addendum: 02/27/21 at 2344 by VASQUEZ BENAVIDEZ RN Amended: Links added. Addendum: 02/27/21 at 2344 by VASQUEZ BENAVIDEZ RN Amended: Links added.
[2021-02-27] MEDS ORDERED: IV NORMAL SALINE 250 ML IV ONE (22:15)
[2021-02-27] MEDS ORDERED: LINEZOLID IV 600 MG in PREMIXED 1 EACH IV SCH (23:00)
--- NOTE | 2021-02-27 23:54 | NUR ---
Responded to NS IV bolus; BP 102/64.
[2021-02-28] VITALS (74 sets, daily range): BP systolic 67–121; BP diastolic 27–78
--- NOTE | 2021-02-28 03:30 | NUR ---
Incontinent of moderate soft brown yellow stools. Am care done. Wound care treatment done; skin care provided. Patient still gets agitated during care. Addendum: 02/28/21 at 0356 by VASQUEZ BENAVIDEZ RN Amended: Links added.
[2021-02-28] MEDS: METOPROLOL TARTRATE 25 MG TABLET PO SCH (06:00)
--- NOTE | 2021-02-28 06:00 | NUR ---
Incontinent of small soft brown BM again. Cleaned, skin care provided; repositioned. Patient still gets agitated with care.
--- NOTE | 2021-02-28 06:30 | NUR ---
Upon arrival to [facility] patient is hypotensive, treasury director: Afib rate 100's. Continues to get restless when stimulated. Call placed to [employer] by Jermain CABRERA.
[2021-02-28] MEDS: LEVOTHYROXINE SODIUM 75 MCG TABLET PO SCH (07:00)
--- NOTE | 2021-02-28 07:00 | NUR ---
Patient brought down from 3rd floor for CHRISTINA overflow. Patient connected to the monitor and BP was found to be in the low 70s systolic. Circulating the site of the cuff yielded similar results. Patient was upgraded to CHRISTINA status late last evening when he experienced a similar drop in BP post-hemodialysis. Seeing as the patient is not stable, though he seems to be asymptomatic as he is responsive per his baseline condition, I called and spoke with Dr. Fernández and received an order for 500ml 0.9% NS bolus and neosynephrine titrate to keep SBP >90. Orders carried out. Patient also arrived on 2L NC SAT 98%. A-fib on the monitor 90s-100s.
[2021-02-28 07:14] LABS: CARBON DIOXIDE 30 mmol/L (21-32); CHLORIDE 104 mmol/L (98-107); GLUCOSE 58 mg/dL (74-106); PHOSPHOROUS 2.9 mg/dL (2.5-4.9); POTASSIUM 3.9 mmol/L (3.5-5.1); UREA NITROGEN, BLOOD 22 mg/dL (7-18)
[2021-02-28] MEDS ORDERED: IV NORMAL SALINE 500 ML IV ONE (07:15)
[2021-02-28 07:31] LABS: MEAN CORPUSCULAR HEMOGLOBIN 31.7 uug (23.8-33.4)
[2021-02-28 07:33] LABS: HEMATOCRIT 29.4 % (36.7-47.1); MEAN CORPUSCULAR VOLUME 102.1 fL (73.0-96.2)
[2021-02-28 07:38] LABS: PLATELET COUNT (AUTO) 48 K/uL (152-348)
[2021-02-28] MEDS: PHENYLEPHRINE IV 50 MG in IV NORMAL SALINE 245 ML IV PRN ×2 (07:46→19:04)
[2021-02-28] MEDS: MIDODRINE HCL 5 MG TABLET PO SCH ×3 (08:36→17:46)
[2021-02-28] MEDS: QUETIAPINE FUMARATE 25 MG TABLET PO SCH ×2 (08:36→17:00)
[2021-02-28] MEDS: SENNOSIDES 1 TABLET PO SCH (08:36)
[2021-02-28] MEDS: NEPRO (VANILLA) 237 ML CAN PO SCH ×3 (08:36→17:00)
[2021-02-28] MEDS: MODAFINIL 100 MG TABLET PO SCH (08:36)
[2021-02-28] MEDS: LACTULOSE 20 G/30 ML LIQUID UDC PO SCH ×2 (08:36→20:44)
[2021-02-28] MEDS: RIFAXIMIN 550 MG TABLET PO SCH ×2 (08:37→20:44)
[2021-02-28] MEDS: SODIUM HYPOCHLORITE 0.125% (QUARTER STRENGTH) 473 ML BOTTLE TP SCH (09:24)
[2021-02-28] MEDS ORDERED: LINEZOLID IV 600 MG in PREMIXED 1 EACH IV SCH (12:00)
[2021-02-28] MEDS ORDERED: VANCOMYCIN IV 500 MG in IV DEXTROSE 5% 100 ML IV PRN (14:15)
[2021-02-28] MEDS ORDERED: VANCOMYCIN IV 1,000 MG in IV DEXTROSE 5% 250 ML IV ONE (14:30)
--- NOTE | 2021-02-28 14:38 | NUR ---
called Stacie HUGGINS from ID and informed that lab called centinela and are unable to run sensitivity for doripenem. And sensitivities have already been posted on [employer]. Kwabena in the unit to see patient and is also aware of sensitivities.
--- NOTE | 2021-02-28 17:41 | NUR ---
patient is more hypothermic after heating pads and more blankets. placed patient on warming blanket/ kvng hugger.
--- NOTE | 2021-02-28 17:47 | NUR ---
held seroquel due to patient being drowsy
--- NOTE | 2021-02-28 18:40 | NUR ---
Dr. Velazquez informed that patient is unstable and is on pressors- will cancel dialysis for today.
[2021-02-28] MEDS: HYDROCORTISONE SOD SUCCINATE 100 MG/2 ML VIAL IV SCH (19:05)
[2021-02-28] MEDS: LORAZEPAM 2 MG/1 ML VIAL IV PRN (19:28)
--- NOTE | 2021-02-28 19:28 | NUR ---
Received patient restless, non verbal with bilateral mittens for safety. Opens eyes to name calls but doesn't follow any commands. Language barrier? On contact isolation for VRE in the wound. Medicated with Ativan for restlessness. On continuous Neosynephrine drip via KAYODE PICC line for BP support. Turned; incontinent of small soft brown yellow stools. Skin care provided. Wound dressings intact. Addendum: 03/01/21 at 0019 by VASQUEZ BENAVIDEZ RN Amended: Links added. Addendum: 03/01/21 at 0020 by VASQUEZ BENAVIDEZ RN Amended: Links added. Addendum: 03/01/21 at 0020 by VASQUEZ BENAVIDEZ RN Amended: Links added. Addendum: 03/01/21 at 0020 by VASQUEZ BENAVIDEZ RN Amended: Links added. Addendum: 03/01/21 at 0020 by VASQUEZ BENAVIDEZ RN Amended: Links added. Addendum: 03/01/21 at 0020 by VASQUEZ BENAVIDEZ RN Amended: Links added. Addendum: 03/01/21 at 0021 by VASQUEZ BENAVIDEZ RN Amended: Links added. Addendum: 03/01/21 at 0021 by VASQUEZ BENAVIDEZ RN Amended: Links added.
[2021-02-28] MEDS ORDERED: AMIKACIN 350 MG in IV DEXTROSE 5% 100 ML IV ONE (20:00)
[2021-02-28] MEDS ORDERED: MEROPENEM 500 MG in IV NORMAL SALINE 50 ML IV SCH (20:00)
--- NOTE | 2021-02-28 20:00 | NUR ---
Still hypothermic; warming blanket continuously on. Addendum: 03/01/21 at 0142 by VASQUEZ BENAVIDEZ RN Amended: Links added.
[2021-02-28 20:37] LABS: BAND % (MANUAL) 10 % (0-10); LYMPHOCYTES % (MANUAL) 6 % (20-40); MONOCYTES % (MANUAL) 9 % (2-10); NEUTROPHILS % (MANUAL) 75 % (42-75)
[2021-02-28] MEDS: Z GUARD REMEDY PASTE 57 GM TUBE TOP PRN (20:45)
[2021-03-01] VITALS (88 sets, daily range): BP systolic 38–164; BP diastolic 20–108
[2021-03-01] MEDS ORDERED: DIGOXIN 500 MCG/2 ML AMP IV ONE ×2 (04:00→22:00)
[2021-03-01] MEDS: PHENYLEPHRINE IV 50 MG in IV NORMAL SALINE 245 ML IV PRN (04:31)
[2021-03-01] MEDS: LEVOTHYROXINE SODIUM 75 MCG TABLET PO SCH (06:09)
[2021-03-01 07:10] LABS: MEAN CORPUSCULAR HEMOGLOBIN 32.5 uug (23.8-33.4)
[2021-03-01 07:11] LABS: HEMATOCRIT 32.5 % (36.7-47.1)
[2021-03-01 07:12] LABS: PLATELET COUNT (AUTO) 66 K/uL (152-348)
[2021-03-01] MEDS: RIFAXIMIN 550 MG TABLET PO SCH ×2 (08:16→22:18)
[2021-03-01] MEDS: LACTULOSE 20 G/30 ML LIQUID UDC PO SCH ×2 (08:16→21:00)
[2021-03-01] MEDS: HYDROCORTISONE SOD SUCCINATE 100 MG/2 ML VIAL IV SCH ×3 (08:16→17:32)
[2021-03-01] MEDS: MODAFINIL 100 MG TABLET PO SCH (08:17)
[2021-03-01] MEDS: SENNOSIDES 1 TABLET PO SCH (08:17)
[2021-03-01] MEDS: MIDODRINE HCL 5 MG TABLET PO SCH ×3 (08:18→17:32)
[2021-03-01] MEDS: QUETIAPINE FUMARATE 25 MG TABLET PO SCH ×2 (08:19→17:00)
[2021-03-01] MEDS: SODIUM HYPOCHLORITE 0.125% (QUARTER STRENGTH) 473 ML BOTTLE TP SCH (08:21)
[2021-03-01 08:31] LABS: ALANINE AMINOTRANSFERASE 39 U/L (16-63); ALKALINE PHOSPHATASE 457 U/L (50-136); ASPARTATE AMINOTRANSFERASE 78 U/L (15-37); BILIRUBIN,TOTAL 12.8 mg/dL (0.2-1.0); CARBON DIOXIDE 22 mmol/L (21-32); CHLORIDE 102 mmol/L (98-107); CREATININE 3.6 mg/dL (0.6-1.3); GLUCOSE 73 mg/dL (74-106); MAGNESIUM 2.2 mg/dL (1.8-2.4); PHOSPHOROUS 4.7 mg/dL (2.5-4.9); POTASSIUM 4.4 mmol/L (3.5-5.1); TOTAL PROTEIN, SERUM 6.2 g/dL (6.4-8.2); UREA NITROGEN, BLOOD 25 mg/dL (7-18); VANCOMYCIN,RANDOM 19.1 ug/mL (18.0-26.0)
[2021-03-01 08:34] LABS: BAND % (MANUAL) 1 % (0-10); LYMPHOCYTES % (MANUAL) 4 % (20-40); MONOCYTES % (MANUAL) 7 % (2-10); NEUTROPHILS % (MANUAL) 88 % (42-75)
[2021-03-01] MEDS: NEPRO (VANILLA) 237 ML CAN PO SCH ×3 (09:00→17:00)
[2021-03-01 09:57] LABS: LIPASE < 10 U/L (73-393)
--- NOTE | 2021-03-01 12:30 | NUR ---
ultrasound done at bedside.
--- NOTE | 2021-03-01 12:34 | NUR ---
dialysis finished and tolerated with neosynephrine at 2.5 mcg throughout.
[2021-03-01] MEDS ORDERED: AMIKACIN 350 MG in IV DEXTROSE 5% 100 ML IV ONE (13:00)
[2021-03-01] MEDS: ALBUMIN HUMAN 25% 100 ML IV SCH ×3 (13:17→23:31)
--- NOTE | 2021-03-01 14:00 | NUR ---
picc line done at this time.
--- NOTE | 2021-03-01 16:00 | NUR ---
patient unstable at this time to do woundcare
[2021-03-01] MEDS ORDERED: NOREPINEPHRINE BITARTRATE 8 MG in IV NORMAL SALINE 242 ML IV PRN (17:15)
--- NOTE | 2021-03-01 17:20 | NUR ---
Informed Dr. Wilde bp is starting to go down and maxed out on neosynephrine and will start norepi. informed that post dialysis is when his bp started to go down. 1lit taken out. no new orders and continue with drips.
[2021-03-01] MEDS: MEROPENEM 500 MG in IV NORMAL SALINE 50 ML IV SCH (17:34)
[2021-03-01] MEDS: PHENYLEPHRINE IV 100 MG in IV NORMAL SALINE 240 ML IV PRN (17:35)
[2021-03-01] MEDS ORDERED: DIGOXIN 500 MCG/2 ML AMP IV SCH (21:45)
--- NOTE | 2021-03-01 21:50 | NUR ---
dr rodriguez , tinning machine set up operator informed of sustaining heart rate and rhythm . received orders of digoxin
[2021-03-02] VITALS (96 sets, daily range): BP systolic 104–174; BP diastolic 44–106
[2021-03-02] MEDS: PHENYLEPHRINE IV 100 MG in IV NORMAL SALINE 240 ML IV PRN ×2 (03:41→14:30)
[2021-03-02] MEDS ORDERED: DIGOXIN 500 MCG/2 ML AMP IV ONE (04:00)
[2021-03-02] MEDS: ALBUMIN HUMAN 25% 100 ML IV SCH (05:15)
[2021-03-02] MEDS: LEVOTHYROXINE SODIUM 75 MCG TABLET PO SCH (05:52)
[2021-03-02 06:14] LABS: HEMATOCRIT 27.6 % (36.7-47.1); MEAN CORPUSCULAR HEMOGLOBIN 32.6 uug (23.8-33.4); MEAN CORPUSCULAR VOLUME 105.2 fL (73.0-96.2); PLATELET COUNT (AUTO) 51 K/uL (152-348)
[2021-03-02 06:16] LABS: CARBON DIOXIDE 22 mmol/L (21-32); CHLORIDE 103 mmol/L (98-107); CREATININE 3.3 mg/dL (0.6-1.3); GLUCOSE 85 mg/dL (74-106); MAGNESIUM 2.3 mg/dL (1.8-2.4); PHOSPHOROUS 5.1 mg/dL (2.5-4.9); POTASSIUM 4.4 mmol/L (3.5-5.1); UREA NITROGEN, BLOOD 25 mg/dL (7-18)
--- NOTE | 2021-03-02 07:45 | NUR ---
Seen by Dr. Angeles - Pulmonology. Attempted to titrate down on O2 to room air. Patient saturation between 88-90% on room air. Replaced on 2L NC. aware. New orders received and implemented.
[2021-03-02 07:53] LABS: LYMPHOCYTES % (MANUAL) 5 % (20-40); MONOCYTES % (MANUAL) 6 % (2-10); NEUTROPHILS % (MANUAL) 89 % (42-75)
[2021-03-02] MEDS ORDERED: VASOPRESSIN 20 UNIT in IV NORMAL SALINE 40 ML IV PRN (08:00)
[2021-03-02 08:09] LABS: BILIRUBIN,DIRECT 9.5 mg/dL (0.0-0.2); BILIRUBIN,TOTAL 13.8 mg/dL (0.2-1.0); TOTAL PROTEIN, SERUM 6.4 g/dL (6.4-8.2)
[2021-03-02] MEDS: QUETIAPINE FUMARATE 25 MG TABLET PO SCH ×2 (08:22→16:42)
[2021-03-02] MEDS: RIFAXIMIN 550 MG TABLET PO SCH ×2 (08:22→20:31)
[2021-03-02] MEDS: SENNOSIDES 1 TABLET PO SCH (08:23)
[2021-03-02] MEDS: HYDROCORTISONE SOD SUCCINATE 100 MG/2 ML VIAL IV SCH ×3 (08:24→16:42)
[2021-03-02] MEDS: LACTULOSE 20 G/30 ML LIQUID UDC PO SCH ×2 (08:24→20:31)
[2021-03-02] MEDS: SODIUM HYPOCHLORITE 0.125% (QUARTER STRENGTH) 473 ML BOTTLE TP SCH (08:26)
--- NOTE | 2021-03-02 08:30 | NUR ---
Titrated levophed off. BP holding. Will continue to closely monitor.
[2021-03-02] MEDS: MODAFINIL 100 MG TABLET PO SCH (08:43)
[2021-03-02] MEDS ORDERED: PANTOPRAZOLE SODIUM 40 MG VIAL IV SCH (09:00)
[2021-03-02] MEDS: NEPRO (VANILLA) 237 ML CAN PO SCH ×3 (09:00→16:08)
[2021-03-02] MEDS: MIDODRINE HCL 5 MG TABLET PO SCH ×3 (09:02→16:42)
--- NOTE | 2021-03-02 10:51 | NUR ---
Per Pharmacy, infusing vancomycin at this time.
--- NOTE | 2021-03-02 11:45 | NUR ---
Seen by Dr Wilde, Cardiology. See noted for new orders.
[2021-03-02] MEDS: MEROPENEM 500 MG in IV NORMAL SALINE 50 ML IV SCH (14:16)
--- NOTE | 2021-03-02 20:00 | NUR ---
Was informed by day shift of a cancelled miscellaneous order from Infectious Disease for sensitivities to the PSA to Avycaz, Zerbaxa, Zemdri, Cefiderocol, and Doripemen from a wound culture done on 02/21. Our in house lab does not do these tests, and I was informed these are sent out to the [facility] lab and I would have to call them. I called [facility] and spoke to Carlos who is the lab supervisor network control operators. He was able to see the original culture and sensitivities, but did not see any request for the new sensitivities mentioned above. He wrote down the sensitivities being requested and told me he would pass them onto the microbiology team when they came in tomorrow morning. Unfortunately these miscellaneous orders are not seen by our lab, and are often missed by the nursing staff. These types of orders should be submitted as a Microbiology culture and sensitivity order which is sent directly to the lab, and they would have relayed this new sensitivity order to [facility].
[2021-03-03] VITALS (55 sets, daily range): BP systolic 96–149; BP diastolic 34–121
[2021-03-03 05:12] LABS: HEMATOCRIT 26.2 % (36.7-47.1); MEAN CORPUSCULAR HEMOGLOBIN 32.4 uug (23.8-33.4); MEAN CORPUSCULAR VOLUME 102.3 fL (73.0-96.2)
[2021-03-03 05:17] LABS: ALANINE AMINOTRANSFERASE 29 U/L (16-63); ALKALINE PHOSPHATASE 315 U/L (50-136); ASPARTATE AMINOTRANSFERASE 70 U/L (15-37); BILIRUBIN,TOTAL 13.8 mg/dL (0.2-1.0); CARBON DIOXIDE 26 mmol/L (21-32); CHLORIDE 106 mmol/L (98-107); CREATININE 3.8 mg/dL (0.6-1.3); GLUCOSE 107 mg/dL (74-106); MAGNESIUM 2.1 mg/dL (1.8-2.4); PHOSPHOROUS 4.9 mg/dL (2.5-4.9); POTASSIUM 4.3 mmol/L (3.5-5.1); TOTAL PROTEIN, SERUM 5.6 g/dL (6.4-8.2); UREA NITROGEN, BLOOD 36 mg/dL (7-18)
[2021-03-03 05:20] LABS: PLATELET COUNT (AUTO) 49 K/uL (152-348)
[2021-03-03 05:53] LABS: LYMPHOCYTES % (MANUAL) 3 % (20-40); MONOCYTES % (MANUAL) 11 % (2-10); NEUTROPHILS % (MANUAL) 86 % (42-75)
[2021-03-03] MEDS: LORAZEPAM 2 MG/1 ML VIAL IV PRN (05:59)
[2021-03-03] MEDS: LEVOTHYROXINE SODIUM 75 MCG TABLET PO SCH (06:07)
--- NOTE | 2021-03-03 07:38 | NUR ---
DIALYSIS IN PROGRESS. Vital stable Hr of 93, sbp of 122/70, R 13. saturation of 99% on 2Lnc. Patient remains on Phenylephrine, at 0.9mcg/kg/min= 7.87cc/hr. Will continue with care plan.
[2021-03-03] MEDS: NEPRO (VANILLA) 237 ML CAN PO SCH ×3 (09:00→17:00)
[2021-03-03] MEDS: MODAFINIL 100 MG TABLET PO SCH (10:22)
[2021-03-03] MEDS: MIDODRINE HCL 5 MG TABLET PO SCH ×3 (10:24→17:00)
[2021-03-03] MEDS: LACTULOSE 20 G/30 ML LIQUID UDC PO SCH (10:25)
[2021-03-03] MEDS: HYDROCORTISONE SOD SUCCINATE 100 MG/2 ML VIAL IV SCH ×3 (10:25→21:00)
[2021-03-03] MEDS: FAMOTIDINE. 20 MG/2 ML VIAL IV SCH (10:26)
[2021-03-03] MEDS: QUETIAPINE FUMARATE 25 MG TABLET PO SCH ×2 (10:27→17:01)
[2021-03-03] MEDS: SENNOSIDES 1 TABLET PO SCH (10:27)
[2021-03-03] MEDS: RIFAXIMIN 550 MG TABLET PO SCH ×2 (10:28→20:56)
[2021-03-03] MEDS: SODIUM HYPOCHLORITE 0.125% (QUARTER STRENGTH) 473 ML BOTTLE TP SCH (10:29)
[2021-03-03] MEDS: MEROPENEM 500 MG in IV NORMAL SALINE 50 ML IV SCH (14:09)
--- NOTE | 2021-03-03 16:57 | NUR ---
Attending physician Dr. Mccracken in the unit to examine pt. report given see order hx. Addendum: 03/03/21 at 1901 by SUGEY ARENAS RN Attending notified that pt's daughter Peggy call and wants to be updated by him.
[2021-03-03] MEDS ORDERED: LACTULOSE 20 G/30 ML LIQUID UDC PO SCH (17:00)
[2021-03-03] MEDS ORDERED: IV NORMAL SALINE 250 ML IV PRN (18:00)
--- NOTE | 2021-03-03 23:00 | NUR ---
Unable to obtain Axillary or Oral temperature. Rectal temperature = 94.8 Ghulam hugger applied.
[2021-03-04] VITALS (15 sets, daily range): BP systolic 109–129; BP diastolic 39–77
[2021-03-04] MEDS: LORAZEPAM 2 MG/1 ML VIAL IV PRN (05:00)
[2021-03-04 05:09] LABS: HEMATOCRIT 26.4 % (36.7-47.1); MEAN CORPUSCULAR HEMOGLOBIN 31.9 uug (23.8-33.4); MEAN CORPUSCULAR VOLUME 103.1 fL (73.0-96.2)
[2021-03-04 05:20] LABS: PLATELET COUNT (AUTO) 29 K/uL (152-348)
[2021-03-04 05:22] LABS: ALANINE AMINOTRANSFERASE 34 U/L (16-63); ALKALINE PHOSPHATASE 377 U/L (50-136); ASPARTATE AMINOTRANSFERASE 68 U/L (15-37); BILIRUBIN,DIRECT 10.3 mg/dL (0.0-0.2); BILIRUBIN,TOTAL 13.7 mg/dL (0.2-1.0); CARBON DIOXIDE 29 mmol/L (21-32); CHLORIDE 108 mmol/L (98-107); GLUCOSE 154 mg/dL (74-106); MAGNESIUM 2.1 mg/dL (1.8-2.4); PHOSPHOROUS 3.4 mg/dL (2.5-4.9); POTASSIUM 3.7 mmol/L (3.5-5.1); TOTAL PROTEIN, SERUM 5.1 g/dL (6.4-8.2); UREA NITROGEN, BLOOD 33 mg/dL (7-18)
[2021-03-04] MEDS: HYDROCORTISONE SOD SUCCINATE 100 MG/2 ML VIAL IV SCH ×2 (05:41→12:57)
[2021-03-04] MEDS: LEVOTHYROXINE SODIUM 75 MCG TABLET PO SCH (06:00)
[2021-03-04 06:07] LABS: BAND % (MANUAL) 9 % (0-10); LYMPHOCYTES % (MANUAL) 6 % (20-40); METAMYELOCYTES % 4 % (0-1); MONOCYTES % (MANUAL) 4 % (2-10); NEUTROPHILS % (MANUAL) 77 % (42-75)
[2021-03-04 06:27] LABS: ABG BASE EXCESS 2.3 mmol/L; ABG HCO3 27.6 mmol/L; ABG PCO2 46.7 mmHg (35.0-45.0); ABG PO2 85.7 mmHg (75.0-100.0); ABG SITE LEFT BRACHIAL; ABG TOTAL HEMOGLOBIN 8.9 G/dL (13.5-18.0); COHb 2.3 % (0.5-1.5); MetHb 0.3 % (0.0-1.5); O2Hb 93.6 % (94.0-97.0); VENT MODE Nasal Cannula
--- NOTE | 2021-03-04 06:40 | NUR ---
Patient remains obtunded and encephalopathic. Pupils do not track and are sluggish - sclera jaundiced. Restless & unable to take/follow commands - Ativan given x 1. On 2L NC. Saturations remain consistently > 94%. Wet/non-mucous producing cough present. NGtube on intermittent suctioning per order. Controlled afib on monitor with occasional PVCs. I was unable to get an axillary/oral temperature reading - rectal 94.8 then 96.5. Ghulam gilaer on periodically. GI/: BM x 2 (watery/brown). Anuric. Misc: Patients upper extremities show severe weeping. Contacted [facility] to follow up about IDs request for culture - was told that "nightclub manager does not have access to that information and to have day shift call"
--- NOTE | 2021-03-04 07:40 | NUR ---
Received patient from night shift supervisor nurse. Patient obtundent. Sbp 124/38, hr 103, o2 sat 98%, rr 19, temp 97.6. Left upper arm triple lumen Picc in place and heplocked. Right upper arm iv in place and TKO. Will continue to monitor.
--- NOTE | 2021-03-04 08:00 | NUR ---
Pulmonary services, Dr. Hendricks in to follow up on pt. report given see order hx.
[2021-03-04] MEDS: FAMOTIDINE. 20 MG/2 ML VIAL IV SCH (08:01)
[2021-03-04] MEDS: MODAFINIL 100 MG TABLET PO SCH (08:02)
[2021-03-04] MEDS: SENNOSIDES 1 TABLET PO SCH (08:03)
[2021-03-04] MEDS: QUETIAPINE FUMARATE 25 MG TABLET PO SCH (08:03)
[2021-03-04] MEDS: RIFAXIMIN 550 MG TABLET PO SCH (08:04)
[2021-03-04] MEDS: MIDODRINE HCL 5 MG TABLET PO SCH ×2 (08:04→12:57)
[2021-03-04] MEDS: SODIUM HYPOCHLORITE 0.125% (QUARTER STRENGTH) 473 ML BOTTLE TP SCH (08:06)
[2021-03-04] MEDS: NEPRO (VANILLA) 237 ML CAN PO SCH ×2 (08:06→13:00)
[2021-03-04] MEDS ORDERED: LACTULOSE 20 G/30 ML LIQUID UDC PO SCH (09:00)
--- NOTE | 2021-03-04 09:00 | NUR ---
Attending Physician Dr. Kaykay Baker in the unit to see and examine pt. report given orders to continue with ICU monitoring received. And as stated by . " I'm doing my best to get some one to dialyze patient today, I'm short on staff to work"
--- NOTE | 2021-03-04 11:30 | NUR ---
PT's Ms. Rahel Kaufman in the unit to visit pt. and she was updated on care plan. Ms. Mcginnis updated on care plan and after she stated "I wish to speak with DrLazaro and stop all treatments for my because I don't want him to continue suffering". and stated will call her kids and informed them. Attending Myranda Ojeda walk in and assessed pt. later on when took final decision for comfort measures, lulu Whitmore notified. sheetmetal trades worker Ms. Lee informed as well and she spoke with pt's who signed the POLST. Attending notified awaiting further orders to implement comfort measures.
--- NOTE | 2021-03-04 12:42 | NUR ---
This CMA informed by DEBORAH Garcia that patient's has decided to put patient on comfort measures and that has spoken to attending hospitalist Myranda Ojeda NP. This CMA arrived to the CCU and discussed patient's family's wishes with DEBORAH Garcia and Myranda (via telephone). This CMA and DEBORAH Garcia then met with the patient's , Rahel, and discussed Rahel's healthcare wishes for the patient. Rahel stated that she does not want CPR for the patient, does not want any aggressive treatment, and wants comfort measure only. Rahel signed the POLST, indicating her healthcare wishes for the patient. Rhael also stated that she already has mortuary arrangements for the patient, and Rahel was informed to provide this information to nursing. Rahel stated that she will provide nursing with this information. JOSELUIS Whitmore informed that the patient's has signed the POLST. This CMA also informed DEBORAH Garcia that Myranda's signature is pending on the POLST. Radha to communicate with Myranda regarding Mryanda's signature on the POLST and to obtain any further orders.
[2021-03-04] MEDS ORDERED: SCOPOLAMINE PATCH 1 MG/72 HRS PATCH TD SCH (13:45)
[2021-03-04] MEDS ORDERED: LORAZEPAM 2 MG/1 ML VIAL IV PRN (13:45)
[2021-03-04] MEDS ORDERED: GLYCOPYRROLATE 0.2 MG/ML VIAL IV PRN (13:45)
[2021-03-04] MEDS ORDERED: MORPHINE SULFATE PF IV DRIP 100 MG in IV DEXTROSE 5% 96 ML IV PRN (13:45)
--- NOTE | 2021-03-04 14:24 | NUR ---
PT's Ms. Rahel martinez called to be notified that pt. will be started on comfort measures. and as stated "I might visit later on and you guys can proceed, thanks for the call".
--- NOTE | 2021-03-04 15:05 | NUR ---
Contact [facility] and spoke with [employer] account representative RID # [id number]. As stated [facility] will move forward and pt is not a candidate for any organ donation, and body can be release once pt. has no heart beat.
--- NOTE | 2021-03-04 15:15 | NUR ---
Pt. started on morphine drip as ordered. pt's vitals as follow: HR of 107, sbp of 120/44, rr 23.
--- NOTE | 2021-03-04 20:00 | NUR ---
Thanh Woods states that [facility] Jarad Mihaela [phone] is going to be picking patient up. They will be making arrangements and set up picking tech themselves. Ruchi Woods # [phone]
--- NOTE | 2021-03-04 20:20 | NUR ---
1943 PATIENT IS APNEIC FOR 5 MINUTES; NO HEART TONES; NO RESPONSE TO NOXIOUS STIMULI; PUPILS FIXED AND DILATED; PT IS PRONOUNCED AT 194H; MD AWARE; FAMILY AT BEDSIDE; SENIOR JAVA DEVELOPER MADE AWARE; WILL CALL [facility].
--- NOTE | 2021-03-04 20:45 | NUR ---
Small amounts of blood noted upon removal of patients lines during post mortem care. Pressure applied for long period of time.
--- NOTE | 2021-03-04 21:30 | NUR ---
[facility] # [id number]
== END 2021-03-04 22:30 | DRG 981 ==
LOC: ER 16:06 → TELE3 19:55 → MEDSURG3 02-21 08:20 → TELE3 02-27 19:53 → TELE-TD3 02-27 19:57 → OBSER 02-28 06:22 → CCU 02-28 06:56 → MEDSURG3 03-04 19:39
PROVIDERS: ADMIT Internal Medicine; ATTEND Registered Nurse
PROC: 5A1D70Z Performance of Urinary Filtration, Intermittent, Less than 6 Hours Per Day (ICD-10-PCS; principal; 2021-02-16)
PROC: 0KBP0ZZ Excision of Left Hip Muscle, Open Approach (ICD-10-PCS; 2021-02-21)
PROC: 0KBN0ZZ Excision of Right Hip Muscle, Open Approach (ICD-10-PCS; 2021-02-21)
PROC: 02HV33Z Insertion of Infusion Device into Superior Vena Cava, Percutaneous Approach (ICD-10-PCS; 2021-03-01)
PROC: B548ZZA Ultrasonography of Superior Vena Cava, Guidance (ICD-10-PCS; 2021-03-01)
DX: I13.2 Hypertensive heart and chronic kidney disease with heart failure and with stage 5 chronic kidney disease, or end stage renal disease (principal); N18.6 End stage renal disease; I50.33 Acute on chronic diastolic (congestive) heart failure; G93.41 Metabolic encephalopathy; L89.154 Pressure ulcer of sacral region, stage 4; J96.21 Acute and chronic respiratory failure with hypoxia; Z51.5 Encounter for palliative care; G92 Toxic encephalopathy; A41.9 Sepsis, unspecified organism; R65.21 Severe sepsis with septic shock; E43 Unspecified severe protein-calorie malnutrition; J18.9 Pneumonia, unspecified organism; Z16.21 Resistance to vancomycin; Z16.23 Resistance to quinolones and fluoroquinolones; D68.9 Coagulation defect, unspecified; I48.20 Chronic atrial fibrillation, unspecified; J90 Pleural effusion, not elsewhere classified; J44.0 Chronic obstructive pulmonary disease with (acute) lower respiratory infection; Z68.1 Body mass index [BMI] 19.9 or less, adult; B67.90 Echinococcosis, unspecified; Z99.2 Dependence on renal dialysis; B96.5 Pseudomonas (aeruginosa) (mallei) (pseudomallei) as the cause of diseases classified elsewhere; B95.2 Enterococcus as the cause of diseases classified elsewhere; E03.9 Hypothyroidism, unspecified; D69.59 Other secondary thrombocytopenia; D63.1 Anemia in chronic kidney disease; E11.22 Type 2 diabetes mellitus with diabetic chronic kidney disease; E55.9 Vitamin D deficiency, unspecified; F03.90 Unspecified dementia, unspecified severity, without behavioral disturbance, psychotic disturbance, mood disturbance, and anxiety; Z66 Do not resuscitate; Z87.891 Personal history of nicotine dependence; K74.60 Unspecified cirrhosis of liver; K80.20 Calculus of gallbladder without cholecystitis without obstruction; D75.89 Other specified diseases of blood and blood-forming organs; Z20.822 Contact with and (suspected) exposure to COVID-19; I25.10 Atherosclerotic heart disease of native coronary artery without angina pectoris; K72.90 Hepatic failure, unspecified without coma; K21.9 Gastro-esophageal reflux disease without esophagitis; N40.0 Benign prostatic hyperplasia without lower urinary tract symptoms; K76.89 Other specified diseases of liver; E88.09 Other disorders of plasma-protein metabolism, not elsewhere classified; M62.50 Muscle wasting and atrophy, not elsewhere classified, unspecified site; I70.8 Atherosclerosis of other arteries
CPT/HCPCS: 36415; 36600; 51702; 70030-TC; 70450; 71045; 72193; 74018; 76700; 82652; 83550; 83605; 83690; 83735; 84100; 84166; 84443; 85025; 85610; 85651; 85730; 86706; 86803; 87040; 87070; 87077; 87086; 87340; 87806; 90937; 93005; 93307; A4663; C9113; G0378; G0480; J0278; J0696; J0885; J1160; J1720; J2020; J2060; J2185; J2274; J2370; J2405; J3370; J3490; J7040; J7050; J7060; P9047; Q9967